=== PATIENT | male | born 1965 | race African-American/Black ===

== ENCOUNTER → 2025-01-18 | Day surgery (SDC) | payer OTHER ==
[~2025-01-18] MED LIST: AMLODIPINE BESY10 MG PO; ATORVASTATIN CA10 MG PO; DEXMEDETOMIDINE HCL 200 MCG/2 ML VIAL ONE; FENTANYL CITRATE/PF 100MCG/2 ML INJ ONE; GLUCAGON FOR INJ 1 MG VIAL ONE; HYOSCYAMINE SULFATE 0.5 MG/ML INJ ONE; IRON325 M1 PO; LIDOCAINE HCL 2% LOCAL INJ 5 ML SDV VIAL INJ ONE; LOSARTAN POTAS100 MG PO; METFORMIN HCL500 M1 PO; PROPOFOL IV EMULSION 10 MG/ML 20 ML VIAL ONE; PROPOFOL IV EMULSION 50 ML IV ONE; VITAMIN D31250 MCG PO
[2025-01-18] MEDS: LACTATED RINGER'S 1,000 ML ONE (07:26)
[2025-01-18 09:32] VITALS: TEMP 97.7
[2025-01-18 10:00] VITALS: BP 141/83; PULSE 72; RESP 16; O2SAT 95
[2025-01-23 15:13] LABS: IMMUNOGLOBULIN A 395 mg/dL (61-437)
== END | disposition home or self-care (01) ==
LOC: OR 06:46
PROVIDERS: ATTEND Internal Medicine Gastroenterology
DX: D64.9 Anemia, unspecified (principal); K63.5 Polyp of colon; K31.89 Other diseases of stomach and duodenum; R19.5 Other fecal abnormalities; K44.9 Diaphragmatic hernia without obstruction or gangrene; E11.9 Type 2 diabetes mellitus without complications; I10 Essential (primary) hypertension; E78.5 Hyperlipidemia, unspecified; N20.0 Calculus of kidney; F17.200 Nicotine dependence, unspecified, uncomplicated; Z01.810 Encounter for preprocedural cardiovascular examination; Z79.84 Long term (current) use of oral hypoglycemic drugs; Z79.899 Other long term (current) drug therapy
CPT/HCPCS: 43239; 45385; 82784; 93005; J1610; J1980; J2003; J2470; J2704 ×2; J3010; J7121; 45378; 83516; 86256

== ENCOUNTER → 2025-02-14 | Outpatient (REF) | payer OTHER ==
[~2025-02-14] MED LIST changes: -DEXMEDETOMIDINE HCL 200 MCG/2 ML VIAL ONE; -FENTANYL CITRATE/PF 100MCG/2 ML INJ ONE; -GLUCAGON FOR INJ 1 MG VIAL ONE; -HYOSCYAMINE SULFATE 0.5 MG/ML INJ ONE; -LIDOCAINE HCL 2% LOCAL INJ 5 ML SDV VIAL INJ ONE; -PROPOFOL IV EMULSION 10 MG/ML 20 ML VIAL ONE; -PROPOFOL IV EMULSION 50 ML IV ONE
== END ==
LOC: DX 09:20
PROVIDERS: ATTEND Nurse Practitioner
DX: D64.9 Anemia, unspecified (principal)
CPT/HCPCS: 74250